=== PATIENT | male | born 1940 | race Caucasian/White ===

== ENCOUNTER 2016-10-27 09:30 | Outpatient (CLI) | payer MEDICARE, OTHER ==
[~2016-10-27 09:30] MED LIST: ACETAMINOPHEN &1 TA1 PO; AMERINET CHOICE1 G1 IV; AMLO5TAB PO; ASPIRIN 81MG TA81 MG PO; ATORVASTATIN CA40 MG PO; ATORVASTATIN CA80 MG PO; CLOPIDOGREL75 M2 PO; FLONASE 50 MCG16 GM; FLUOXETINE20 MG PO; GABAPENTIN300 M1 PO; GABAPENTIN300 MG PO; LORTAB 5/500 501 TAB PO; MELOXICAM15 MG PO; NEIGHBOR P PO; NORCO 325 MG-51 TAB PO; PANTOPRAZOLE SO40 MG PO; RAMIPRIL5 M1 PO; TAMSULOSIN HCL0.4 MG PO; TEMAZEPAM30 MG PO; VALTREX1 GM PO; VANCOMYCIN125 MG/2.5 PO; VIBRAMYCIN50 MG/5 ML PO; VITAMIN B122500 MC1 PO
[2016-10-27 09:55] VITALS: BP 169/67
[2016-10-27 10:20] VITALS: BP 165/70
[2016-10-27 10:35] VITALS: BP 165/65
== END 2016-10-27 10:40 | disposition home or self-care (01) ==
LOC: COP 09:30
DX: M46.28 Osteomyelitis of vertebra, sacral and sacrococcygeal region (principal); M54.5 Low back pain
CPT/HCPCS: J1335

== ENCOUNTER 2016-10-28 09:40 | Outpatient (CLI) | payer MEDICARE, OTHER ==
[2016-10-28 10:05] VITALS: BP 174/66
[2016-10-28 10:20] VITALS: BP 160/66
[2016-10-28 10:35] VITALS: BP 145/67
[2016-10-28 11:05] LABS: HEMOGLOBIN 8.9 g/dL (14.1-18.0); LYMPH # 1.1 K/mm3 (0.7-4.5); LYMPH % 11.9 % (10-50)
[2016-10-28 11:27] LABS: BUN 23 mg/dL (7-18)
[2016-10-28 12:00] LABS: GFR (ESTIMATED) 50 ML/MIN (>60)
== END 2016-10-28 12:15 | disposition home or self-care (01) ==
LOC: COP 09:40
PROVIDERS: Internal Medicine Infectious Disease
DX: M46.28 Osteomyelitis of vertebra, sacral and sacrococcygeal region (principal); M54.5 Low back pain
CPT/HCPCS: J1335

== ENCOUNTER 2016-10-29 09:15 | Outpatient (CLI) | payer MEDICARE, OTHER ==
[2016-10-29 10:02] VITALS: BP 132/65
[2016-10-29 10:10] VITALS: BP 118/60
[2016-10-29 10:50] VITALS: BP 105/59
== END 2016-10-29 10:50 | disposition home or self-care (01) ==
LOC: COP 09:15
DX: M46.28 Osteomyelitis of vertebra, sacral and sacrococcygeal region (principal); M54.5 Low back pain
CPT/HCPCS: J1335

== ENCOUNTER 2016-10-30 09:00 | Outpatient (CLI) | payer MEDICARE, OTHER ==
[2016-10-30 09:33] VITALS: BP 156/66
[2016-10-30 09:48] VITALS: BP 136/61
[2016-10-30 10:04] VITALS: BP 140/51
[2016-10-30 10:19] VITALS: BP 147/65
== END 2016-10-30 10:22 | disposition home or self-care (01) ==
LOC: COP 09:00
DX: M46.28 Osteomyelitis of vertebra, sacral and sacrococcygeal region (principal); M54.5 Low back pain
CPT/HCPCS: J1335

== ENCOUNTER 2016-10-31 09:15 | Outpatient (CLI) | payer MEDICARE, OTHER ==
[2016-10-31 09:45] VITALS: BP 139/66; BP 154/53
[2016-10-31 10:15] VITALS: BP 147/47
[2016-10-31 10:35] VITALS: BP 144/67
== END 2016-10-31 10:35 | disposition home or self-care (01) ==
LOC: COP 09:15
DX: M46.28 Osteomyelitis of vertebra, sacral and sacrococcygeal region (principal); M54.5 Low back pain
CPT/HCPCS: J1335

== ENCOUNTER 2016-11-12 08:30 | Outpatient (CLI) | payer MEDICARE, OTHER ==
[2016-11-12 09:05] VITALS: BP 157/71
[2016-11-12 09:20] VITALS: BP 147/52
[2016-11-12 09:35] VITALS: BP 145/56
[2016-11-12 09:50] VITALS: BP 152/55
== END 2016-11-12 10:00 | disposition home or self-care (01) ==
LOC: COP 08:30
DX: M46.28 Osteomyelitis of vertebra, sacral and sacrococcygeal region (principal); M54.5 Low back pain
CPT/HCPCS: J1335

== ENCOUNTER 2016-11-13 08:50 | Outpatient (CLI) | payer MEDICARE, OTHER ==
[2016-11-13 09:10] VITALS: BP 130/75
[2016-11-13 09:25] VITALS: BP 133/58
[2016-11-13 09:40] VITALS: BP 143/68
[2016-11-13 09:55] VITALS: BP 145/56
== END 2016-11-13 10:00 | disposition home or self-care (01) ==
LOC: COP 08:50
DX: M46.28 Osteomyelitis of vertebra, sacral and sacrococcygeal region (principal); M54.5 Low back pain
CPT/HCPCS: J1335

== ENCOUNTER 2016-11-14 08:40 | Outpatient (CLI) | payer MEDICARE, OTHER ==
[2016-11-14 09:10] VITALS: BP 163/65
[2016-11-14 09:40] VITALS: BP 156/56
== END 2016-11-14 09:40 | disposition home or self-care (01) ==
LOC: COP 08:40
DX: M46.28 Osteomyelitis of vertebra, sacral and sacrococcygeal region (principal); M54.5 Low back pain
CPT/HCPCS: J1335

== ENCOUNTER 2016-11-15 09:40 | Outpatient (CLI) | payer MEDICARE, OTHER ==
[2016-11-15 10:39] VITALS: BP 138/65
== END 2016-11-15 10:40 | disposition home or self-care (01) ==
LOC: COP 09:40
DX: M46.28 Osteomyelitis of vertebra, sacral and sacrococcygeal region (principal); M54.5 Low back pain
CPT/HCPCS: J1335

== ENCOUNTER 2016-11-16 08:52 | Outpatient (CLI) | payer MEDICARE, OTHER ==
[2016-11-16 09:25] VITALS: BP 166/71
[2016-11-16 09:55] VITALS: BP 159/59
== END 2016-11-16 10:05 | disposition home or self-care (01) ==
LOC: COP 08:52
DX: M46.28 Osteomyelitis of vertebra, sacral and sacrococcygeal region (principal); M54.5 Low back pain
CPT/HCPCS: J1335

== ENCOUNTER 2016-11-17 10:10 | Outpatient (CLI) | payer MEDICARE, OTHER ==
[2016-11-17 09:21] VITALS: BP 168/67
[2016-11-17 09:36] VITALS: BP 143/64
[2016-11-17 09:51] VITALS: BP 155/60
[2016-11-17 10:06] VITALS: BP 133/63
== END 2016-11-17 10:15 | disposition home or self-care (01) ==
LOC: COP 10:10
DX: M46.28 Osteomyelitis of vertebra, sacral and sacrococcygeal region (principal); M54.5 Low back pain
CPT/HCPCS: J1335

== ENCOUNTER → 2017-04-10 | Outpatient (CLI) | payer MEDICARE, OTHER ==
[2017-04-10 10:20] LABS: BILIRUBIN, INDIRECT 0.21 mg/dL (0-0.9)
== END ==
LOC: LAB 09:15
PROVIDERS: Internal Medicine Cardiovascular Disease
DX: E78.5 Hyperlipidemia, unspecified (principal); Z79.899 Other long term (current) drug therapy